=== PATIENT | male | born 1980 | race Two or more races ===

== ENCOUNTER 2024-07-30 13:23 | Outpatient (AMB) | payer OTHER, SELFPAY ==
--- NOTE | 2024-07-30 13:24 | A.OFFVIS_ITS ---
Intake Visit Reasons: GI consult Intake Note: Eber presents as a video call for a GI consult follow up. CC: Statwes he gets Acid reflux but not too concerning. 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 Allergies No Known Allergies Allergy (Verified 07/30/24 13:24) HPI HPI GI consult: Details: HPI 44 yr old m being seen for assessment for symptoms He noted hemorrhoids, earlier this year he was trying fiber he has been having blood when wiping blood can be on wiping and mixed with stool no melena denies abdominal pain no nausea or vomiting GERD more frequently now no dysphagia he takes tums and it works well he goes twice to bathroom a day he has to some times push hard on stool, no pain defecation, denies urgency worreid abt havign fissues as weel ROS: Constitutional : No Weight loss, No Fever, No Chills ENT/Mouth : No sore throat, No Rhinorrhea Eyes: No Swelling, No Redness Cardiovascular : No Chest Pain, No SOB, No Edema Respiratory : No Cough, No Sputum, No Wheezing Gastrointestinal : see HPI Genitourinary : NO Dysuria, No Urinary Frequency, No Hematuria, No Urgency Musculoskeletal : no joint pain, No Myalgias, No Joint Swelling Skin : No Skin Lesions, No rash Neuro : No Weakness, No Numbness, No Dizziness, No Headache Psych : No Anxiety/Panic, No Depression Heme/Lymph: No Bruising, No Lymphadenopathy Endocrine : No Polyuria, No Polydipsia All other systems reviewed and are negative. Medical History depression, controlled Surgical History cholecystectomy colonoscopy 23 yrsago--was neg Family History DM grandmother- lung cacner Social History smoker, vaping ex alcohol 4 yrs ago no drug use EXAM: GENERAL: The patient is well developed and nontoxic. A/P: 1/ Rectal bleeding, possible anal fissures, need to r/o IBD or other path, 2/ Recent worsening GERD PLAN: 1/ EGD and colonoscopy for further assessment, sent suprep 2/ he wants to hold on trial of rectiv, advised on high fiber diet meantime Telehealth Telehealth [facility] Location of provider rendering services: practice address Location of patient: address on file Patient Identification confirmed using: Name, : Yes Telehealth method: video Patient verbally consented to treatment: Yes Patient verbally consented to billing insurance company: Yes Patient informed of any privacy concerns related to visit: Yes Minutes spent on Phone/Video with Pt.: 12 Assessment & Plan Assessment & Plan (1) Rectal bleed: Code(s): K62.5 - Hemorrhage of anus and rectum Category: Medical Plan see above Medications: New sodium,potassium,mag sulfates 17.5-3.13-1.6 gram (Suprep Bowel Prep Kit) DILUTE; drink 1/2 at 6-8 pm and half at 11 PM- 1AM 354 mL 0RF Coding Level of Care Code Tele New Pt Level 4 (73370) Diagnoses Rectal bleed K62.5
== END 2024-07-30 14:50 | disposition home or self-care (01) ==
LOC: HO.HGI 13:23
PROVIDERS: Visit Provider Internal Medicine Gastroenterology
DX: K62.5 Hemorrhage of anus and rectum (principal)
CPT/HCPCS: 99204

== ENCOUNTER → 2024-07-30 13:23 | Outpatient (BNVA) | payer OTHER, SELFPAY | PROVIDERS: Visit Provider Internal Medicine Gastroenterology ==